=== PATIENT | male | born 1985 | race Hispanic/Latino ===

== ENCOUNTER 2018-02-11 14:43 | Outpatient (CLI) | payer OTHER ==
--- NOTE | 2018-02-11 16:50 | RAD ---
RIGHT HAND TWO VIEWS: 02/11/18 HISTORY: 32-year-old male with history of right hand pain and TRC. There is some deformity of the base of the fourth and fifth metacarpals probably related to old heale d trauma. No evidence for acute fracture or dislocation. IMPRESSION: Deformity of the proximal portions of the fourth and fifth metacarpals probably related to old trauma . No acute process. POS: DANILO
== END 2018-02-11 14:44 | disposition home or self-care (01) ==
LOC: BICRAD 14:43
PROVIDERS: ATTEND Internal Medicine
DX: M79.641 Pain in right hand (principal); M20.091 Other deformity of right finger(s)